=== PATIENT | female | born 1980 | race Hispanic/Latino ===

== ENCOUNTER → 2022-06-20 | Outpatient (CLI) | payer BC | END | disposition home or self-care (01) | LOC: RAH 13:50 | PROVIDERS: ATTEND Obstetrics & Gynecology | DX: Z12.31 Encounter for screening mammogram for malignant neoplasm of breast (principal) | CPT/HCPCS: 77067 ==

== ENCOUNTER → 2023-10-12 | Outpatient (CLI) | payer BC | END | disposition home or self-care (01) | LOC: RAH 11:29 | PROVIDERS: ATTEND Obstetrics & Gynecology | DX: Z12.31 Encounter for screening mammogram for malignant neoplasm of breast (principal) | CPT/HCPCS: 77067 ==

== ENCOUNTER → 2025-05-12 | Outpatient (CLI) | payer BC ==
--- NOTE | 2025-05-12 11:25 | HMCIMG ---
Left BREAST ULTRASOUND: COMPARISON: Prior ultrasound from 0-02/14/2025 is available. Left: Real-time examination of the [right/left] breast demonstrates homogeneous echotexture throughout the breast. In the left breast between 5 and 6:00 there is a hypoechoic nodule with shadowing. The lesion measures approximately 1.2 x 1.3 x 1.0 cm which has increased in size as compared to prior mammogram. There is multiple axillary lymph nodes the largest measuring 1.0 x 0.7 x 1.0 cm the second measuring 0.7 x 0.6 x 0.9 cm. IMPRESSION: Left breast there is a hypoechoic lesion with shadowing. I would recommend ultrasound-guided biopsy for further evaluation.. FINAL ASSESSMENT: ACR: BI-RAD -4. Suspicious: Finding(s) without all the characteristics morphology of breast cancer but indicatingadefine probability of being malignant: biopsy should be considered.
--- NOTE | 2025-05-12 11:27 | HMCIMG ---
DIGITAL left breast DIAGNOSTIC MAMMOGRAM Technique: The digital mammographic examination of left breast in craniocaudal, mediolateral oblique views along with CAD was obtained. History: This is a 44 years year-old female with left breast lesion for follow-up for diagnostic mammogram. Patient has no family history of breast cancer. Patient has no complaint Reference:Prior mammogram from 10/23/2024, 10/15/2024, 10/12/2023, 06/20/2022 are available for comparison., 2024, 2023,. Breast composition: Breast composition B: There are scattered areas of fibroglandular density. Finding: The digital mammographic examination of left breast in craniocaudal and mediolateral oblique view along with CAD demonstrates a lesion seen at C5-6 o'clock which has increased in size as compared to prior ultrasound and mammography.. The left breast appears to BE mildly dense. There is no evidence of any dendritic mass, cluster microcalcification or architectural distortion. The retromammary fat appears to be normal. IMPRESSION: Left breast lesion between 5 and 6:00 has increased in size as compared to prior study. I would recommend ultrasound-guided biopsy for further evaluation FINAL ASSESSMENT: ACR: BI-RAD -4. Suspicious: Finding(s) without all the characteristics morphology of breast cancer but indicatingadefine probability of being malignant: biopsy should be considered. NOTE: IF A WORK-UP OF THIS PATIENT LEADS TO A BIOPSY, PLEASE FORWARD A COPY OF THE PATHOLOGY REPORT TO OUR OFFICE REQUIRED BY [employer] EFFECTIVE MAY 28, 1994. A NEGATIVE MAMMOGRAM SHOULD NOT PRECLUDE BIOPSY OF A CLINICALLY PALPABLE SUSPICIOUS MASS, 10% OF BREAST CANCERS ARE MAMMOGRAPHICALLY OCCULT. THIS MAMMOGRAPHY FACILITY IS FULLY ACCREDITED BY THE [employer] (FDA). THANK YOU FOR THIS REFERRAL.
== END | disposition home or self-care (01) ==
LOC: RAH 09:37
PROVIDERS: ATTEND Family Medicine
DX: N63.25 Unspecified lump in the left breast, overlapping quadrants (principal); N63.23 Unspecified lump in the left breast, lower outer quadrant; R92.322 Mammographic fibroglandular density, left breast
CPT/HCPCS: 76641; 77065

== ENCOUNTER → 2025-05-21 | Outpatient (CLI) | payer BC ==
[~2025-05-21] MED LIST: LIDOCAINE HCL 1% 20 ML VIAL ONE
[2025-05-21 08:34] LABS: INR 0.99 (0.85-1.15)
--- NOTE | 2025-05-21 09:20 | NUR ---
ULTRASOUND GUIDED LEFT BREAST NODULE BX PROCEDURE PERFORMED BY DR. JAMILA MENDOZA. PUNCTURE SITE LEFT BREAST BETWEEN 5 AND 6 O'CLOCK AND PATIENT TOLERATED PROCEDURE WELL. SPECIMEN X3 COLLECTED AND SENT TO LAB. END OF PROCEDURE AT 0910. BIOPSY NEEDLE REMOVED AND BAND-AID APPLIED- NO BLEEDING NOTED. DISCHARGE INSTRUCTIONS GIVEN TO PATIENT AND VERBALIZED UNDERSTANDING. MAMMO OF LEFT BREAST TO FOLLOW FOR VERIFICATION OF PLACEMENT OF TISSUE MARKER. PATIENT IS AMBULATORY AND DISCHARGED IN STABLE CONDITION WITH NO C/O PAIN.
--- NOTE | 2025-05-21 10:44 | HMCIMG ---
DIGITAL left breast DIAGNOSTIC MAMMOGRAM postbiopsy Technique: The digital mammographic examination of left breast in craniocaudal, mediolateral oblique views along with CAD was obtained. Postbiopsy images History: This is a 44 years year-old female who underwent left breast biopsy at 6:00 with placement of biopsy marker Reference:Prior mammogram from 05/12/2025, 10/23/2024, 10/17/20172024, 10/12/2023 and 06/20/2022 are available. Are available.. Breast composition: Breast composition C: The breasts are heterogeneously dense, which may obscure small masses. Finding: The digital mammographic examination of left breast craniocaudal and mediolateral oblique view along with CAD demonstrates a biopsy marker in the lesion at 6:00 in satisfactory position.. There is no evidence of any dendritic mass, cluster microcalcification or architectural distortion. The retromammary fat appears to be normal. IMPRESSION: The biopsy marker in the left breast at 6:00 in satisfactory position. Pathology report is pending. FINAL ASSESSMENT: Post-procedure Mammogram for Marker Placement. NOTE: IF A WORK-UP OF THIS PATIENT LEADS TO A BIOPSY, PLEASE FORWARD A COPY OF THE PATHOLOGY REPORT TO OUR OFFICE REQUIRED BY [employer] E[employer]IVE MAY 28, 1994. A NEGATIVE MAMMOGRAM SHOULD NOT PRECLUDE BIOPSY OF A CLINICALLY PALPABLE SUSPICIOUS MASS, 10% OF BREAST CANCERS ARE MAMMOGRAPHICALLY OCCULT. THIS MAMMOGRAPHY FACILITY IS FULLY ACCREDITED BY THE [employer] (FDA). THANK YOU FOR THIS REFERRAL.
--- NOTE | 2025-05-21 15:09 | HMCIMG ---
PERCUTANEOUS ULTRASOUND-GUIDED BIOPSY OF left BREAST MASS at 5:00: And placement of a biopsy marker CLINICAL HISTORY: This is a 44 [id number] female with left breast mass at 5:00 for ultrasound-guided biopsy. The risk and benefit was explained to the patient. The risks include bleeding and infection. The patient consented to the procedure. Finding: Under ultrasound guidance left breast lesion at 5:00 was localized. After sterile prep and drape, 1% Xylocaine was used for local anesthetic. Using a 14-gauge Bard gun a total of 3 core biopsy was obtained. The specimen was sent for histology and cell block. Postbiopsy a biopsy marker was placed at 5:00. Patient tolerated procedure well. IMPRESSION: 1. PERCUTANEOUS ULTRASOUND-GUIDED BIOPSY OF left breast lesion at 5:00 WITH SPECIMENS SENT FOR HISTOLOGY AND CELL BLOCK. THE PATIENT TOLERATED PROCEDURE WELL. PATHOLOGY REPORT IS PENDING. Biopsy marker was placed at the biopsy site. 2. PATIENT IS TO HAVE A POST BIOPSY MARKER PLACEMENT UNILATERAL left BREAST MAMMOGRAM.
== END | disposition home or self-care (01) ==
LOC: RAH 07:45
PROVIDERS: ATTEND Family Medicine
DX: D24.2 Benign neoplasm of left breast (principal); Z79.01 Long term (current) use of anticoagulants
CPT/HCPCS: 19083; 77065; 85610; 85730; 36415; 88305; A4215 ×2